=== PATIENT | female | born 1955 | race Caucasian/White ===

== ENCOUNTER 2023-11-09 11:54 | Emergency (ER) | payer OTHER ==
[~2023-11-09] VITALS: Ht 160 cm; Wt 84.4 kg
[2023-11-09 12:40] VITALS: BP_SYST 134; PULSE 89; RESP 18; TEMP 97.4; O2SAT 97
[2023-11-09] MEDS ORDERED: IBUP-1969 PO (14:55)
[2023-11-09] MEDS ORDERED: HYDR-3917 PO (14:55)
[2023-11-09 15:04] VITALS: BP_SYST 134; PULSE 89; RESP 18; TEMP 97.4; O2SAT 97
== END 2023-11-09 15:04 | disposition home or self-care (01) ==
LOC: SED 11:54
DX: S43.491A Other sprain of right shoulder joint, initial encounter (principal); Z79.899 Other long term (current) drug therapy; W18.2XXA Fall in (into) shower or empty bathtub, initial encounter; Y93.89 Activity, other specified; Y92.89 Other specified places as the place of occurrence of the external cause; Y99.8 Other external cause status
CPT/HCPCS: 73030; 99283

== ENCOUNTER 2023-12-20 05:00 | Inpatient (IN) | payer OTHER ==
[~2023-12-20] VITALS: Ht 157.5 cm; Wt 85.7 kg
[~2023-12-20 05:00] MED LIST: HYDR-3917 PO; IBUP-1969 PO
[2023-12-20] MEDS: ACETAMINOPHEN 500 MG TABLET ONE (05:13)
[2023-12-20] MEDS: GABAPENTIN 300 MG CAPSULE ONE (05:16)
[2023-12-20] MEDS: CEFAZOLIN SOD 2 GM in D5W 50 ML IV ONE (06:00)
[2023-12-20] MEDS: GABAPENTIN 300 MG CAPSULE PO ONE (06:05)
[2023-12-20] MEDS: ACETAMINOPHEN 500 MG TABLET PO ONE (06:05)
[2023-12-20] MEDS ORDERED: BUPIVACAINE /PF 0.25% 30 ML VIAL INJ ONE (07:05)
[2023-12-20] MEDS ORDERED: ePHEDrine sulfate 50 MG/ML VIAL ONE (07:05)
[2023-12-20] MEDS ORDERED: [UNRECOGNIZED DRUG - OTHER] INJ ONE (07:05)
[2023-12-20] MEDS ORDERED: SUCCINYLCHOLINE CHLORIDE 20 MG/ML(QUELICIN) ONE (07:05)
[2023-12-20] MEDS ORDERED: SEVOFLURANE 15 MIN GAS INH ONE (07:05)
[2023-12-20] MEDS ORDERED: LR 1,000 ML IV.SOLN IV ONE (07:05)
[2023-12-20] MEDS ORDERED: DEXAMETHASONE SOD PHOSPHATE 4 MG/ML VIAL ONE (07:05)
[2023-12-20] MEDS ORDERED: TRANEXAMIC ACID 1,000 MG/10 ML VIAL ONE (07:05)
[2023-12-20] MEDS ORDERED: KETOROLAC TROMETHAMINE 30 MG VIAL ONE (07:05)
[2023-12-20] MEDS ORDERED: VANCOMYCIN HCL 1000 MG/VIAL IV ONE (07:05)
[2023-12-20] MEDS ORDERED: WATER FOR IRRIGATION,STERILE 1,000 ML IRRIG.SOLN IR ONE (07:05)
[2023-12-20] MEDS ORDERED: ONDANSETRON HCL 4 MG/2 ML VIAL ONE (07:05)
[2023-12-20] MEDS ORDERED: PROPOFOL 200MG/ 20ML VIAL (DIPRIVAN) IV ONE (07:05)
[2023-12-20] MEDS: HYDROmorphone 2 MG/ML VIAL ONE ×2 (07:24→08:37)
[2023-12-20] MEDS ORDERED: BISACODYL 10 MG/SUPPOSITORY RC PRN (09:30)
[2023-12-20] MEDS ORDERED: LACTULOSE 20 GM/30 ML UDC PO PRN (09:30)
[2023-12-20] MEDS ORDERED: DIPHENHYDRAMINE HCL 25 MG CAPSULE PO PRN (09:30)
[2023-12-20] MEDS ORDERED: NALOXONE HCL 0.4 MG/ML AMP (NARCAN) IVP PRN ×4 (09:30→10:00)
[2023-12-20] MEDS ORDERED: METOCLOPRAMIDE HCL 10 MG/2 ML VIAL IVP PRN ×2 (09:30→10:00)
[2023-12-20] MEDS ORDERED: HYDROmorphone 1 MG/ML INJ. CARTRIDGE IVP PRN ×4 (10:00→11:00)
[2023-12-20] MEDS ORDERED: ONDANSETRON HCL 4 MG/2 ML VIAL IVP PRN (10:00)
[2023-12-20] MEDS ORDERED: MORPHINE 4 MG INJ. 4 MG/ML VIAL IVP PRN ×2 (10:00)
[2023-12-20] MEDS ORDERED: LORATADINE 10 MG TABLET PO PRN (11:00)
[2023-12-20] MEDS ORDERED: oxyCODONE HCL 5 MG TABLET PO PRN ×2 (11:00)
[2023-12-20] MEDS ORDERED: VIT C PO (11:04)
[2023-12-20] MEDS ORDERED: MULT-1117 PO (11:04)
[2023-12-20] MEDS ORDERED: VIT D PO (11:04)
[2023-12-20] MEDS: ACETAMINOPHEN 500 MG TABLET PO SCH (14:05)
[2023-12-20 14:24] VITALS: O2SAT 96
[2023-12-20 14:33] VITALS: BP_SYST 130; PULSE 94; RESP 16; TEMP 97.7
[2023-12-20] MEDS: ceFAZolin SODIUM 2 GM in D5W 50 ML IV SCH (14:56)
[2023-12-20] MEDS: KETOROLAC TROMETHAMINE 10 MG TABLET (TORADOL) PO SCH (15:18)
[2023-12-20 16:00] VITALS: BP_SYST 134; PULSE 93; RESP 16; TEMP 97.5; O2SAT 97
[2023-12-20 20:00] VITALS: BP_SYST 130; PULSE 89; RESP 18; TEMP 97.7; O2SAT 98
[2023-12-20] MEDS: SENNOSIDES/DOCUSATE SODIUM 1 TAB TABLET(SENOKOT-S) PO SCH (21:00)
[2023-12-20] MEDS: ONDANSETRON HCL 4 MG/2 ML VIAL IVP PRN (21:10)
[2023-12-21 00:16] VITALS: BP_SYST 118; PULSE 83; RESP 16; TEMP 97.2; O2SAT 98
[2023-12-21] MEDS: traMADol HCL HCL 50 MG TABLET (ULTRAM) PO PRN (02:48)
[2023-12-21 07:38] VITALS: BP_SYST 112; PULSE 80; RESP 18; TEMP 98.5; O2SAT 98
[2023-12-21] MEDS: ASPIRIN 81 MG TAB.CHEW PO SCH (08:12)
[2023-12-21 09:03] VITALS: BP_SYST 112; PULSE 98; RESP 18; TEMP 97.8; O2SAT 97
[2023-12-21 09:24] VITALS: O2SAT 97
[2023-12-21] MEDS ORDERED: CELECOXIB 100 MG CAPSULE PO SCH (11:00)
== END 2023-12-21 10:20 | disposition home or self-care (01) | DRG 470 ==
LOC: INTOOBSV 05:00 → OBSVTOIN 05:00 → SMU 05:00 → STU 12:50 → SMU 14:00
PROVIDERS: ADMIT Orthopaedic Surgery Sports Medicine; ATTEND Orthopaedic Surgery Sports Medicine
PROC: 0SRD0J9 Replacement of Left Knee Joint with Synthetic Substitute, Cemented, Open Approach (ICD-10-PCS; principal; 2023-12-20 07:26)
DX: M17.12 Unilateral primary osteoarthritis, left knee (principal); Z79.899 Other long term (current) drug therapy
CPT/HCPCS: 73560; 87081; 88305; 88311; 96379; 97110-GP; 97112-GP; 97116-GP; 97530-GP; C1713; C1776; G0378; J0330; J0690; J1100; J1170; J1885; J2405; J2704; J3370; J3490; J7060; J7120